=== PATIENT | female | born 1985 | race Caucasian/White ===

== ENCOUNTER 2017-10-10 16:11 | Emergency (ER) | payer OTHER ==
[~2017-10-10] VITALS: Ht 149.9 cm; Wt 54.4 kg
[2017-10-10 16:21] VITALS: BP 120/75
--- NOTE | 2017-10-10 17:14 | NUR ---
Patient ambulated to OF with family. RN evaluating patient.
[2017-10-10] MEDS ORDERED: ACETAMINOPHEN EXTRA STRENGTH 500 MG TAB PO ONE ×2 (17:20→19:00)
--- NOTE | 2017-10-10 17:20 | NUR ---
PRESENT TO ER C/O ABD CRAMPING AND BURNING URINATION x TODAY 1200. PT STATES SHE ALSO HAS DIARRHEA. PT IS 3 MONTHS . LMP 07/12/2017.HX: NONE. MEDS: VITAMINS. SKIN IS PINK/WARM/DRY; AAOX4 WITH EVEN AND STEADY GAIT; LUNGS CLEAR BL. PATIENT STATES PAIN OF 9/10 AT THIS TIME;PATIENT POSITIONED FOR COMFORT; HOB ELEVATED; BEDRAILS UP X2; BED DOWN. ER MD MADE AWARE OF PT STATUS.
[2017-10-10] MEDS ORDERED: ONDANSETRON 4 MG/2 ML VIAL IVP ONE (17:25)
[2017-10-10] MEDS ORDERED: NACL 0.9% 1,000 ML IV ONE (17:25)
[2017-10-10 18:35] LABS: BASOPHILS # (AUTO) 0.1 K/uL (0.00-0.22); BASOPHILS % (AUTO) 0.8 % (0.0-2.0); EOSINOPHILS # (AUTO) 0.1 K/uL (0-0.4); EOSINOPHILS % (AUTO) 0.7 % (0.0-4.0); HEMATOCRIT 36.5 % (36-48); HEMOGLOBIN 12.2 g/dL (12.0-16.0); LYMPHOCYTES # (AUTO) 1.6 K/uL (2.5-16.5); LYMPHOCYTES % (AUTO) 15.1 % (20.5-51.1); MEAN CORPUSCULAR HEMOGLOBIN 28 pg (27-31); MEAN CORPUSCULAR HGB CONC 33 g/dL (33-37); MEAN CORPUSCULAR VOLUME 84 fL (80-94); MONOCYTES # (AUTO) 0.7 K/uL (0.8-1.0); MONOCYTES % (AUTO) 6.9 % (1.7-9.3); NEUTROPHILS % (AUTO) 76.5 % (42.2-75.2); PLATELET COUNT (AUTO) 210 K/uL (140-450); RED BLOOD CELL COUNT(AUTO) 4.36 MIL/uL (4.20-5.40); RED CELL DISTRIBUTION WIDTH 13.6 % (11.6-13.7); WHITE BLOOD COUNT (AUTO) 10.5 K/uL (4.8-10.8)
[2017-10-10] MEDS ORDERED: HYDROcodone/APAP 5/325 MG 1 TAB TAB PO ONE (18:40)
[2017-10-10 18:41] LABS: APPEARANCE,URINE SL CLOUDY (CLEAR); BILIRUBIN,URINE NEGATIVE (NEGATIVE); BLOOD, URINE 2+ (NEGATIVE); COLOR,URINE YELLOW (YELLOW); LEUKOCYTE ESTERASE ,URINE 3+ (NEGATIVE); NITRITE, URINE NEGATIVE (NEGATIVE); PH,URINE 5.5 (5.0-9.0); UGLUCOSE NEGATIVE (NEGATIVE)
[2017-10-10 18:51] LABS: ANION GAP 16.6 (8-16); CARBON DIOXIDE 22.7 mmol/L (21-32); CREATININE 0.7 mg/dL (0.6-1.3); POTASSIUM 4.3 mmol/L (3.5-5.1)
[2017-10-10 18:56] LABS: ALBUMIN 3.5 g/dL (3.4-5.0); TOTAL BILIRUBIN 0.2 mg/dL (0.0-1.0)
[2017-10-10 19:00] LABS: RBC,URINE 3-10 (FEW) /HPF (0-5); WBC,URINE 80-100 /HPF (0-5)
[2017-10-10 19:19] VITALS: BP 110/63
== END 2017-10-10 19:20 | disposition home or self-care (01) ==
LOC: MED 16:11
DX: O23.41 Unspecified infection of urinary tract in pregnancy, first trimester (principal); Z3A.12 12 weeks gestation of pregnancy; Z88.0 Allergy status to penicillin
CPT/HCPCS: 36415; 76801; 80053; 81001; 81025; 84702; 85025; 87086; 87186; 96361; 96374; 99285; J2405; J7030; Q0092

== ENCOUNTER 2017-12-31 22:59 | Observation (INO) | payer MEDICAID, OTHER ==
[~2017-12-31] VITALS: Ht 149.9 cm; Wt 59.9 kg
[2017-12-31] MEDS ORDERED: ALUMINUM HYD/MAG/SIMETHICONE 30 ML UDC PO PRN (23:45)
[2017-12-31] MEDS ORDERED: TERBUTALINE 1 MG/ML VIAL SUBQ SCH (23:45)
[2017-12-31] MEDS ORDERED: TERBUTALINE 1 MG/ML VIAL SUBQ ONE (23:56)
[2017-12-31] MEDS ORDERED: ALUMINUM HYD/MAG/SIMETHICONE 30 ML UDC ONE (23:56)
[2018-01-01] MEDS ORDERED: ALUMINUM HYD/MAG/SIMETHICONE 30 ML UDC ONE (05:18)
[2018-01-01] MEDS ORDERED: LACTATED RINGERS 1,000 ML IV SCH (08:40)
[2018-01-01] MEDS ORDERED: FAMOTIDINE 20 MG/2 ML VIAL IV SCH (09:00)
[2018-01-01] MEDS ORDERED: diphenhydrAMINE 50 MG/ML VIAL ONE (09:05)
[2018-01-01] MEDS ORDERED: diphenhydrAMINE 50 MG/ML VIAL IVP SCH (09:10)
[2018-01-01 14:26] LABS: ALBUMIN 2.8 g/dL (3.4-5.0); ANION GAP 12.4 (8-16); CARBON DIOXIDE 23.4 mmol/L (21-32); CREATININE 0.4 mg/dL (0.6-1.3); POTASSIUM 3.8 mmol/L (3.5-5.1); TOTAL BILIRUBIN 0.3 mg/dL (0.0-1.0)
[2018-01-01] MEDS ORDERED: TERBUTALINE 1 MG/ML VIAL SUBQ SCH (17:00)
[2018-01-01] MEDS ORDERED: TERBUTALINE 1 MG/ML VIAL SUBQ ONE (17:03)
[2018-01-01 20:19] VITALS: BP 114/76
[2018-01-02] MEDS ORDERED: LANSOPRAZOLE 30 MG CAPDR PO SCH (06:30)
== END 2018-01-01 20:50 | disposition home or self-care (01) ==
LOC: MED 22:59 → EDSTATUS 23:19 → MLD 23:20
PROVIDERS: ADMIT Obstetrics & Gynecology; ATTEND Obstetrics & Gynecology
DX: O99.612 Diseases of the digestive system complicating pregnancy, second trimester (principal); K52.9 Noninfective gastroenteritis and colitis, unspecified; Z3A.24 24 weeks gestation of pregnancy
CPT/HCPCS: 36415; 76705; 80053; 81000; 82150; 83690; 96361; 96372; 96374; 99285; G0378; J1200; J3105; J3490; J7120; Q0092

== ENCOUNTER 2018-01-19 21:38 | Observation (INO) | payer MEDICAID ==
[~2018-01-19] VITALS: Ht 149.9 cm; Wt 59.9 kg
[2018-01-19] MEDS ORDERED: PREN1SGL25 PO (21:59)
[2018-01-19] MEDS ORDERED: FERR-252 PO (22:00)
[2018-01-19] MEDS ORDERED: TERBUTALINE 1 MG/ML VIAL SUBQ SCH (22:00)
[2018-01-19] MEDS ORDERED: LACTATED RINGERS 1,000 ML IV SCH (22:00)
[2018-01-19] MEDS ORDERED: TERBUTALINE 1 MG/ML VIAL SUBQ ONE ×2 (22:12→23:06)
[2018-01-19 22:16] VITALS: BP 108/54
[2018-01-20] MEDS: LACTATED RINGERS 1,000 ML IV SCH ×3 (02:15→16:53)
[2018-01-20] MEDS ORDERED: ACETAMINOPHEN 325 MG TAB ONE ×3 (04:23→18:08)
[2018-01-20] MEDS: TERBUTALINE 2.5 MG TAB PO SCH ×4 (04:50→18:10)
[2018-01-20] MEDS ORDERED: TERBUTALINE 2.5 MG TAB ONE ×4 (04:50→18:08)
[2018-01-20] MEDS ORDERED: ACETAMINOPHEN EXTRA STRENGTH 500 MG TAB PO PRN (08:00)
[2018-01-20] MEDS ORDERED: ACETAMINOPHEN EXTRA STRENGTH 500 MG TAB ONE (08:09)
--- NOTE | 2018-01-20 08:58 | NUR ---
PATIENT HAS BEEN SCREENED AND CATEGORIZED LOW NUTRITION RISK. PATIENT WILL BE SEEN WITHIN 7 DAYS OF ADMISSION. 01/26/[address]
[2018-01-20] MEDS: ACETAMINOPHEN 325 MG TAB PO PRN ×2 (11:49→18:10)
== END 2018-01-20 18:55 | disposition home or self-care (01) ==
LOC: MLD 21:38
PROVIDERS: ADMIT Obstetrics & Gynecology; ATTEND Obstetrics & Gynecology
DX: O26.892 Other specified pregnancy related conditions, second trimester (principal); R10.2 Pelvic and perineal pain; O62.9 Abnormality of forces of labor, unspecified; Z3A.27 27 weeks gestation of pregnancy
CPT/HCPCS: 76805; 81000; 96360; 96361; 96372; G0378; J3105; J7120; Q0092

== ENCOUNTER 2018-03-21 13:05 | Observation (INO) | payer MEDICAID ==
[~2018-03-21] VITALS: Ht 149.9 cm; Wt 61.7 kg
[~2018-03-21 13:05] MED LIST: FERR-252 PO; PREN1SGL25 PO
[2018-03-21 15:09] VITALS: BP 108/70
[2018-03-21] MEDS ORDERED: TERBUTALINE 1 MG/ML VIAL SUBQ SCH (15:35)
[2018-03-21] MEDS ORDERED: TERBUTALINE 1 MG/ML VIAL SUBQ ONE ×2 (15:38→16:14)
[2018-03-21] MEDS ORDERED: ONDANSETRON 4 MG/2 ML VIAL ONE (17:27)
[2018-03-21] MEDS ORDERED: ONDANSETRON 4 MG/2 ML VIAL IM ONE (17:30)
== END 2018-03-21 18:00 | disposition home or self-care (01) ==
LOC: MLD 13:05
PROVIDERS: ADMIT Obstetrics & Gynecology; ATTEND Obstetrics & Gynecology
DX: O46.93 Antepartum hemorrhage, unspecified, third trimester (principal); O62.9 Abnormality of forces of labor, unspecified; Z3A.36 36 weeks gestation of pregnancy
CPT/HCPCS: 76805; 81000; 96372; G0378; J2405; J3105; Q0092

== ENCOUNTER 2018-03-30 14:12 | Inpatient (IN) | payer MEDICAID ==
[~2018-03-30] VITALS: Ht 149.9 cm; Wt 66.2 kg
[2018-03-30] MEDS ORDERED: BETAMETH ACET/BETAMETH NA PH 30 MG/5 ML VIAL IM PRN (14:50)
[2018-03-30] MEDS ORDERED: TERBUTALINE 1 MG/ML VIAL SUBQ ONE ×2 (15:04→15:59)
[2018-03-30] MEDS ORDERED: BETAMETH ACET/BETAMETH NA PH 30 MG/5 ML VIAL IM ONE (15:04)
[2018-03-30 15:07] VITALS: BP 107/64
[2018-03-30] MEDS: TERBUTALINE 1 MG/ML VIAL SUBQ SCH ×2 (15:09→16:07)
[2018-03-30] MEDS: LACTATED RINGERS 1,000 ML IV SCH ×2 (16:10→22:36)
[2018-03-30] MEDS ORDERED: TERBUTALINE 2.5 MG TAB ONE (17:50)
[2018-03-30] MEDS: TERBUTALINE 2.5 MG TAB PO SCH (18:00)
[2018-03-30] MEDS: CLINDAMYCIN PHOSPHATE 900MG/NS 50 ML IV SCH (18:01)
[2018-03-30 19:38] VITALS: BP 110/61
[2018-03-30] MEDS ORDERED: CLINDAMYCIN PHOSPHATE 900MG/NS 50 ML IV SCH (21:00)
[2018-03-31] MEDS: TERBUTALINE 2.5 MG TAB PO SCH ×2 (00:04→05:57)
[2018-03-31] MEDS ORDERED: TERBUTALINE 2.5 MG TAB ONE ×2 (00:06→05:54)
[2018-03-31] MEDS ORDERED: NALBUPHINE 10 MG/ML AMP ONE ×2 (00:19→08:31)
[2018-03-31] MEDS ORDERED: PROMETHAZINE 25 MG/ML VIAL ONE ×2 (00:20→08:32)
[2018-03-31] MEDS: NALBUPHINE 10 MG/ML AMP IVP PRN ×2 (00:21→08:34)
[2018-03-31] MEDS: PROMETHAZINE 25 MG/ML VIAL IVP PRN ×2 (00:21→08:35)
[2018-03-31] MEDS: CLINDAMYCIN PHOSPHATE 900MG/NS 50 ML IV SCH ×2 (02:05→10:03)
[2018-03-31] MEDS ORDERED: BETAMETH ACET/BETAMETH NA PH 30 MG/5 ML VIAL IM ONE (03:05)
[2018-03-31] MEDS: LACTATED RINGERS 1,000 ML IV SCH ×2 (06:52→12:51)
--- NOTE | 2018-03-31 08:39 | NUR ---
PATIENT HAS BEEN SCREENED AND CATEGORIZED LOW NUTRITION RISK. PATIENT WILL BE SEEN WITHIN 7 DAYS OF ADMISSION. 04/06/[address]
[2018-03-31] MEDS ORDERED: CITRIC ACID/SODIUM CITRATE 30 ML UDC PO SCH (08:50)
[2018-03-31 10:49] LABS: HEMATOCRIT 27.9 % (36-48); HEMOGLOBIN 8.7 g/dL (12.0-16.0); LYMPHOCYTES # (AUTO) 0.6 K/uL (2.5-16.5); LYMPHOCYTES % (AUTO) 10.1 % (20.5-51.1); MEAN CORPUSCULAR HEMOGLOBIN 26 pg (27-31); MEAN CORPUSCULAR HGB CONC 31 g/dL (33-37); MEAN CORPUSCULAR VOLUME 82.4 fL (80-94); MONOCYTES # (AUTO) 0.1 K/uL (0.8-1.0); MONOCYTES % (AUTO) 1.8 % (1.7-9.3); NEUTROPHILS # (AUTO) 5.3 K/uL (1.8-7.7); NEUTROPHILS % (AUTO) 88.1 % (42.2-75.2); PLATELET COUNT (AUTO) 153 K/uL (140-450); RED BLOOD CELL COUNT(AUTO) 3.38 MIL/uL (4.20-5.40); RED CELL DISTRIBUTION WIDTH 20.9 % (11.6-13.7)
[2018-03-31 10:58] LABS: APPEARANCE,URINE CLEAR (CLEAR); BILIRUBIN,URINE NEGATIVE (NEGATIVE); BLOOD, URINE TRACE-I (NEGATIVE); COLOR,URINE YELLOW (YELLOW); LEUKOCYTE ESTERASE ,URINE 1+ (NEGATIVE); NITRITE, URINE NEGATIVE (NEGATIVE); UGLUCOSE NEGATIVE (NEGATIVE)
[2018-03-31 11:12] LABS: RBC,URINE 0-5 (RARE) /HPF (0-5)
[2018-03-31 11:13] LABS: WBC,URINE 0-5 (RARE) /HPF (0-5)
[2018-03-31 11:22] LABS: ALBUMIN 2.6 g/dL (3.4-5.0); ANION GAP 17.7 (8-16); CARBON DIOXIDE 18.1 mmol/L (21-32); CREATININE 0.6 mg/dL (0.6-1.3); POTASSIUM 3.8 mmol/L (3.5-5.1); TOTAL BILIRUBIN 0.3 mg/dL (0.0-1.0)
[2018-03-31] MEDS ORDERED: OXYTOCIN 10 UNITS/ML VIAL ONE ×3 (11:32→13:01)
[2018-03-31] MEDS ORDERED: fentaNYL 0.05 MG/ML VIAL ONE (12:21)
[2018-03-31] MEDS ORDERED: BUPIVACAINE/DEXT 0.75% SPINAL 2 ML AMP INJ ONE (12:22)
[2018-03-31] MEDS ORDERED: MORPHINE PRES FREE 2 MG/2 ML 2 mL UD SYRINGE ONE (12:22)
[2018-03-31] MEDS ORDERED: NALBUPHINE 10 MG/ML AMP IVP PRN (12:40)
[2018-03-31] MEDS ORDERED: NALOXONE 0.4 MG/ML VIAL IVP PRN ×3 (12:40)
[2018-03-31] MEDS ORDERED: diphenhydrAMINE 50 MG/ML VIAL IVP PRN (12:40)
[2018-03-31] MEDS ORDERED: ONDANSETRON 4 MG/2 ML VIAL IVP PRN ×2 (12:40)
[2018-03-31] MEDS ORDERED: KETOROLAC 60 MG/2 ML VIAL IM PRN (12:40)
[2018-03-31] MEDS ORDERED: ONDANSETRON 4 MG/2 ML VIAL ONE (13:00)
[2018-03-31] MEDS: OXYTOCIN 20 UNITS in LACTATED RINGERS 1,000 ML IV SCH (14:52)
[2018-03-31] MEDS ORDERED: METHYLERGONOVINE 0.2 MG/ML AMP IM PRN (14:55)
[2018-03-31] MEDS ORDERED: TRIMETHOBENZAMIDE 200 MG/2 ML SYR IM PRN (14:55)
[2018-03-31] MEDS ORDERED: MEASLES, MUMPS, AND RUBELLA 1 VIAL SQVAC PRN (14:55)
[2018-03-31] MEDS ORDERED: CLINDAMYCIN 900 MG in DEXTROSE 5% 100 ML IV SCH (18:00)
[2018-04-01] MEDS ORDERED: OXYTOCIN 10 UNITS/ML VIAL ONE (00:24)
[2018-04-01] MEDS: OXYTOCIN 20 UNITS in LACTATED RINGERS 1,000 ML IV SCH (00:28)
[2018-04-01 06:19] LABS: BASOPHILS % (AUTO) 0.1 % (0.0-2.0); HEMATOCRIT 25.1 % (36-48); LYMPHOCYTES % (AUTO) 9.4 % (20.5-51.1); MEAN CORPUSCULAR HEMOGLOBIN 26 pg (27-31); MEAN CORPUSCULAR HGB CONC 32 g/dL (33-37); MEAN CORPUSCULAR VOLUME 81.5 fL (80-94); MONOCYTES # (AUTO) 0.8 K/uL (0.8-1.0); MONOCYTES % (AUTO) 7.4 % (1.7-9.3); NEUTROPHILS # (AUTO) 8.8 K/uL (1.8-7.7); NEUTROPHILS % (AUTO) 83.1 % (42.2-75.2); PLATELET COUNT (AUTO) 132 K/uL (140-450); RED BLOOD CELL COUNT(AUTO) 3.07 MIL/uL (4.20-5.40); RED CELL DISTRIBUTION WIDTH 21.1 % (11.6-13.7); WHITE BLOOD COUNT (AUTO) 10.6 K/uL (4.8-10.8)
[2018-04-01] MEDS ORDERED: TEMAZEPAM 15 MG CAP PO PRN (07:00)
[2018-04-01] MEDS: oxyCODONE/APAP 5/325 MG 1 TAB TAB PO PRN ×3 (08:20→23:20)
[2018-04-01] MEDS: IBUPROFEN 800 MG TAB PO PRN (11:48)
[2018-04-01] MEDS: DOCUSATE SOD/SENNA 50/8.6 MG 1 TAB PO SCH (21:08)
[2018-04-02] MEDS: IBUPROFEN 800 MG TAB PO PRN ×3 (00:30→18:57)
[2018-04-02] MEDS: oxyCODONE/APAP 5/325 MG 1 TAB TAB PO PRN (06:22)
[2018-04-02] MEDS: FERROUS SULFATE 325 MG TABEC PO SCH ×2 (12:40→17:56)
[2018-04-02] MEDS: HYDROcodone/APAP 5/325 MG 1 TAB TAB PO PRN (21:02)
[2018-04-02] MEDS: DOCUSATE SOD/SENNA 50/8.6 MG 1 TAB PO SCH (21:02)
[2018-04-03] MEDS: SIMETHICONE 80 MG TAB.CHEW PO PRN ×2 (01:06→08:34)
[2018-04-03] MEDS: oxyCODONE/APAP 5/325 MG 1 TAB TAB PO PRN ×2 (01:06→11:51)
[2018-04-03] MEDS ORDERED: ONDANSETRON 4 MG TAB PO PRN (03:05)
[2018-04-03] MEDS ORDERED: ONDANSETRON 4 MG TAB ONE (03:18)
[2018-04-03] MEDS: IBUPROFEN 800 MG TAB PO PRN (04:12)
[2018-04-03] MEDS: HYDROcodone/APAP 5/325 MG 1 TAB TAB PO PRN (06:15)
[2018-04-03] MEDS: FERROUS SULFATE 325 MG TABEC PO SCH ×2 (08:34→11:51)
--- NOTE | 2018-04-05 07:56 | NUR ---
PER REQUEST OF [facility] FROM [facility] REPORT FAXED TO [facility] [phone] PHONE KEL [phone].
== END 2018-04-03 14:15 | disposition home or self-care (01) | DRG 540 ==
LOC: MLD 14:12 → UNDOADMOB 14:12 → MLD 03-31 08:48 → INTOOBSV 03-31 08:53 → OBSVTOIN 03-31 08:53 → MFCC 03-31 13:46
PROVIDERS: ADMIT Obstetrics & Gynecology; ATTEND Obstetrics & Gynecology
PROC: 10D00Z1 Extraction of Products of Conception, Low, Open Approach (ICD-10-PCS; principal; 2018-03-31 11:30)
PROC: 3E0234Z Introduction of Serum, Toxoid and Vaccine into Muscle, Percutaneous Approach (ICD-10-PCS; 2018-04-02)
DX: O34.211 Maternal care for low transverse scar from previous cesarean delivery (principal); Z23 Encounter for immunization; Z37.0 Single live birth; Z3A.37 37 weeks gestation of pregnancy
CPT/HCPCS: 36415; 51702; 76815; 80053; 81000; 81001; 85025; 86592; 86886; 86900; 86901; 87086; 87653-90; 90715; G0378; J0702; J1885; J2270; J2300; J2405; J2550; J2590; J3010; J3105; J3490; J7060; J7120; Q0092; Q0162

== ENCOUNTER 2018-04-12 21:08 | Emergency (ER) | payer MEDICAID ==
[~2018-04-12] VITALS: Ht 149.9 cm; Wt 58.6 kg
[2018-04-12 21:23] VITALS: BP 115/76
--- NOTE | 2018-04-12 21:27 | NUR ---
TO LOBBY A/W BED, AMBULATORY, VSS, SHANNAN NOTED
--- NOTE | 2018-04-12 22:56 | NUR ---
PT AMBULATED TO ER BED 05
--- NOTE | 2018-04-12 22:58 | NUR ---
PATIENT PRESENTS TO ED WITH LOWER ABDOMINAL JR S/P MART FROM March. PATIENT STATES SHE WAS SUPPOSED TO GO TO HER OB FOLLOW UP YESTERDAY 04/11 BUT WAS UNABLE TO DO SO. PATIENT STATES SHE HAS A NEW FOLLOW UP APPOINTMENT TOMORROW, BUT WAS ADVISED TO COME IN TO THE ER TO GET HER JR REMOVED DUE TO "BURNING" SENSATION. CESARIAN WOUND IS CLEAN AND DRY, SKIN INTACT AT THIS TIME WITH MINIMAL ERYTHEMA NOTED AROUND STAPLE SITE. PATIENT DENIES ANY FEVERS, N/V AT THIS TIME. ER MD MADE AWARE OF PATIENT STATUS. WILL CONTINUE TO MONITOR.
[2018-04-13] VITALS: BP 120/80
--- NOTE | 2018-04-13 00:01 | NUR ---
Patient discharged with v/s stable. Written and verbal after care instructions given and explained. Patient verbalized understanding. Ambulatory with steady gait. All questions addressed prior to discharge. Advised to follow up with PMD.
== END 2018-04-13 00:01 | disposition home or self-care (01) ==
LOC: MED 21:08
DX: Z48.02 Encounter for removal of sutures (principal); Z88.0 Allergy status to penicillin
CPT/HCPCS: 99283

== ENCOUNTER 2021-05-10 09:27 | Emergency (ER) | payer MEDICAID, OTHER ==
[~2021-05-10] VITALS: Ht 149.9 cm; Wt 57.2 kg
[2021-05-10 09:30] VITALS: BP 119/73
--- NOTE | 2021-05-10 09:38 | NUR ---
PT AMBULATED TO BED
--- NOTE | 2021-05-10 09:51 | NUR ---
35 YO F C/O WORSENING RIGHT-SIDED ABDOMINAL PAIN X 1 MONTH. 8, SHARP. ALSO REPORTS HEADACHE, NAUSEA, DYSURIA AND DIARRHEA X 1 DAY. DENIES FEVER, DENIES VOMITING. PT TAKES NORCO AND IBUPROFEN WHICH PROVIDES MINIMAL RELIEF. LAST TAKEN YESTERDAY 4PM. PT STATES SHE WAS SEEN AT [facility] 5 DAYS AGO AND WAS TOLD "SHE HAD A CYST ON HER R OVERY THAT SEEMS TO HAVE BURST AND THERE IS FLUID NOW." PT HAS APT WITH HER OBGYN NEXT THURSDAY LMP: APR 21, 2021 PMH: APPENDECTOMY MEDS: NONE ALLERGY: PENICILLIN
--- NOTE | 2021-05-10 10:16 | NUR ---
DR. AUSTIN BEDSIDE EVALUATING PT
[2021-05-10] MEDS: KETOROLAC 60 MG/2 ML VIAL IM ONE (10:26)
[2021-05-10] MEDS: ONDANSETRON 4 MG ODT PO ONE (10:26)
[2021-05-10] MEDS ORDERED: ONDA8TAB87 PO (10:27)
[2021-05-10 10:36] VITALS: BP 119/73
== END 2021-05-10 10:36 | disposition home or self-care (01) ==
LOC: MED 09:27
DX: R10.30 Lower abdominal pain, unspecified (principal); R11.0 Nausea; Z88.0 Allergy status to penicillin
CPT/HCPCS: 81002; 81025; 96372; 99283; J1885; Q0162

== ENCOUNTER 2021-06-24 18:29 | Emergency (ER) | payer OTHER ==
[~2021-06-24] VITALS: Ht 154.9 cm; Wt 61.2 kg
[~2021-06-24 18:29] MED LIST changes: +ONDA8TAB87 PO
--- NOTE | 2021-06-24 19:15 | NUR ---
TO BED AMBULATORY
[2021-06-24 19:17] VITALS: BP 111/68
--- NOTE | 2021-06-24 19:30 | NUR ---
SEEN AND EXAMINED BY SHANNAN
--- NOTE | 2021-06-24 19:35 | NUR ---
35 YO F BIB SELF FOR C/O SOB/COUGH/DIARRHEA X2 DAYS. PT STATES SHE HAD NEGATIVE COVID TEST LAST WEEK. DENIES BEING EXPOSED TO COVID. PT ON ROOM AIR 98-100%. LUNGS CLEAR TO AUSCULTATION. ABD SOFT NON DISTENDED. PER PT LOOSE STOOLS X2 DAYS. DENIES FEVER CHILLS. TOLERATING PO INTACT + APPETITE. ERMD MADE AWARE. HX: DENIES NKA LMP: 06/17/21
[2021-06-24] MEDS ORDERED: BENZ-196 PO (19:53)
[2021-06-24] MEDS ORDERED: GUAI-791 PO (19:55)
--- NOTE | 2021-06-24 21:11 | NUR ---
Patient discharged with v/s stable. Written and verbal after care instructions given and explained. Patient alert, oriented and verbalized understanding of instructions. Ambulatory with steady gait. All questions addressed prior to discharge. ID band removed. Patient advised to follow up with PMD. Rx of TESSALON, MUCINEX given. Patient educated on indication of medication including possible reaction and side effects. Opportunity to ask questions provided and answered.
[2021-06-24 21:12] VITALS: BP 110/65
== END 2021-06-24 21:11 | disposition home or self-care (01) ==
LOC: MED 18:29
DX: J06.9 Acute upper respiratory infection, unspecified (principal); G43.909 Migraine, unspecified, not intractable, without status migrainosus; Z88.0 Allergy status to penicillin; Z79.899 Other long term (current) drug therapy
CPT/HCPCS: 99283

== ENCOUNTER 2021-07-24 11:33 | Emergency (ER) | payer OTHER ==
[~2021-07-24] VITALS: Ht 124.5 cm; Wt 58.5 kg
[~2021-07-24 11:33] MED LIST changes: +BENZ-196 PO; +GUAI-791 PO
[2021-07-24 11:43] VITALS: BP 106/79
[2021-07-24] MEDS ORDERED: KETOROLAC 60 MG/2 ML VIAL IM ONE (11:50)
--- NOTE | 2021-07-24 12:10 | NUR ---
35/F BIB SELF WITH C/O SHARP NONRADIATING INTERMITTENT CHEST PAIN SINCE YESTERDAY. STATES SHE WAS AT WORK "OPENING BOXES" WHEN THE PAIN STARTED, STATING PAIN WORSENS WHEN LYING ON HER SIDE. DENIES SOB, FEVER, N/V/D. PT STATED SHE ALSO HAS PAIN THAT IS RADIATING TO HER R ARM. PT STATED PAIN IS PRESSURE LIKE PAIN AT THE TIME. BREATH SOUNDS CLEAR AND EQUAL CHEST RISE AND FALL NOTED MEDHX: DENIES ALLERGIES: PENICILLINS, PAPER TAPE
[2021-07-24 13:37] VITALS: BP 100/56
== END 2021-07-24 13:37 | disposition home or self-care (01) ==
LOC: MED 11:33
DX: R07.89 Other chest pain (principal); Z88.0 Allergy status to penicillin; Z90.49 Acquired absence of other specified parts of digestive tract; Z98.890 Other specified postprocedural states
CPT/HCPCS: 93005; 96372; 99283; J1885

== ENCOUNTER 2022-03-23 13:19 | Emergency (ER) | payer OTHER ==
[~2022-03-23] VITALS: Ht 149.9 cm; Wt 61.2 kg
[2022-03-23 13:48] VITALS: BP 113/70
[2022-03-23 14:45] LABS: APPEARANCE,URINE CLEAR (CLEAR); BILIRUBIN,URINE NEGATIVE (NEGATIVE); BLOOD, URINE NEGATIVE (NEGATIVE); COLOR,URINE YELLOW (YELLOW); LEUKOCYTE ESTERASE ,URINE NEGATIVE (NEGATIVE); NITRITE, URINE NEGATIVE (NEGATIVE); PH,URINE 6.5 (5.0-9.0); UGLUCOSE NEGATIVE (NEGATIVE)
[2022-03-23 15:06] LABS: BASOPHILS % (AUTO) 0.5 % (0.0-2.0); EOSINOPHILS # (AUTO) 0.1 K/uL (0-0.4); EOSINOPHILS % (AUTO) 0.9 % (0.0-4.0); HEMOGLOBIN 11.1 g/dL (12.0-16.0); LYMPHOCYTES # (AUTO) 1.3 K/uL (2.5-16.5); LYMPHOCYTES % (AUTO) 20.9 % (20.5-51.1); MEAN CORPUSCULAR HEMOGLOBIN 25 pg (27-31); MEAN CORPUSCULAR HGB CONC 32 g/dL (33-37); MONOCYTES # (AUTO) 0.6 K/uL (0.8-1.0); MONOCYTES % (AUTO) 9.1 % (1.7-9.3); NEUTROPHILS # (AUTO) 4.2 K/uL (1.8-7.7); NEUTROPHILS % (AUTO) 68.6 % (42.2-75.2); PLATELET COUNT (AUTO) 214 K/uL (140-450); RED BLOOD CELL COUNT(AUTO) 4.48 MIL/uL (4.20-5.40); RED CELL DISTRIBUTION WIDTH 18.4 % (11.6-13.7); WHITE BLOOD COUNT (AUTO) 6.2 K/uL (4.8-10.8)
[2022-03-23 15:25] LABS: ANION GAP 12.2 (8-16); CARBON DIOXIDE 24.7 mmol/L (21-32); CREATININE 0.6 mg/dL (0.6-1.3); POTASSIUM 3.9 mmol/L (3.5-5.1); TOTAL BILIRUBIN 0.3 mg/dL (0.0-1.0)
[2022-03-23] MEDS ORDERED: KETOROLAC 30 MG/ML VIAL IVP ONE (16:30)
[2022-03-23 17:05] VITALS: BP 115/64
== END 2022-03-23 17:05 | disposition home or self-care (01) ==
LOC: MED 13:19
DX: B34.9 Viral infection, unspecified (principal); Z20.822 Contact with and (suspected) exposure to COVID-19; R07.9 Chest pain, unspecified
CPT/HCPCS: 36415; 71045; 80053; 81003; 83690; 85025; 87426; 87804; 96374; 99284; J1885

== ENCOUNTER 2022-06-17 09:44 | Emergency (ER) | payer OTHER ==
[~2022-06-17] VITALS: Ht 149.9 cm; Wt 62.1 kg
[2022-06-17 10:06] VITALS: BP 96/60
--- NOTE | 2022-06-17 10:10 | NUR ---
ryan and flu swabbed, given to [facility]
--- NOTE | 2022-06-17 10:45 | NUR ---
labs drawn at this time in [facility], pt asked to return to [facility]
[2022-06-17 10:57] LABS: BASOPHILS % (AUTO) 0.4 % (0.0-2.0); EOSINOPHILS % (AUTO) 0.5 % (0.0-4.0); HEMOGLOBIN 10.6 g/dL (12.0-16.0); LYMPHOCYTES # (AUTO) 0.7 K/uL (2.5-16.5); MEAN CORPUSCULAR HEMOGLOBIN 25 pg (27-31); MEAN CORPUSCULAR HGB CONC 32 g/dL (33-37); MEAN CORPUSCULAR VOLUME 76.8 fL (80-94); MONOCYTES # (AUTO) 0.6 K/uL (0.8-1.0); MONOCYTES % (AUTO) 9.9 % (1.7-9.3); NEUTROPHILS # (AUTO) 4.6 K/uL (1.8-7.7); NEUTROPHILS % (AUTO) 77.2 % (42.2-75.2); PLATELET COUNT (AUTO) 207 K/uL (140-450); RED CELL DISTRIBUTION WIDTH 17.9 % (11.6-13.7); WHITE BLOOD COUNT (AUTO) 5.9 K/uL (4.8-10.8)
[2022-06-17 11:13] LABS: ALBUMIN 3.7 g/dL (3.4-5.0); ANION GAP 17.4 (8-16); CARBON DIOXIDE 21.8 mmol/L (21-32); CREATININE 0.7 mg/dL (0.6-1.3); POTASSIUM 4.2 mmol/L (3.5-5.1); TOTAL BILIRUBIN 0.3 mg/dL (0.0-1.0)
[2022-06-17] MEDS ORDERED: IBUP-2213 PO ×2 (11:52→12:06)
[2022-06-17] MEDS ORDERED: PROM473S5 PO ×2 (11:52→12:06)
[2022-06-17] MEDS ORDERED: NIRM1TAB PO ×2 (11:52→12:06)
[2022-06-17] MEDS ORDERED: NITR100C7 PO ×2 (11:52→12:06)
[2022-06-17 12:08] VITALS: BP 96/60
--- NOTE | 2022-06-17 12:08 | NUR ---
Patient discharged with v/s stable. Written and verbal after care instructions ABOUT COVID 19, ANEMIA AND VIRAL ILLNESS given and explained. Patient alert, oriented and verbalized understanding of instructions. Ambulatory with steady gait. All questions addressed prior to discharge. ID band removed. Patient advised to follow up with PMD. Rx of PAXLOVID, MACROBID, PROMETHAZINE AND IBUPROFEN given. Patient educated on indication of medication including possible reaction and side effects. Opportunity to ask questions provided and answered.
== END 2022-06-17 12:08 | disposition home or self-care (01) ==
LOC: MED 09:44
DX: U07.1 COVID-19 (principal); B34.9 Viral infection, unspecified; N39.0 Urinary tract infection, site not specified; D64.9 Anemia, unspecified; Z88.0 Allergy status to penicillin
CPT/HCPCS: 36415; 80053; 81002; 81025; 85025; 99283

== ENCOUNTER 2022-06-20 13:22 | Emergency (ER) | payer OTHER ==
[~2022-06-20] VITALS: Ht 149.9 cm; Wt 61.7 kg
[~2022-06-20 13:22] MED LIST changes: -BENZ-196 PO; -FERR-252 PO; -GUAI-791 PO; +IBUP-2213 PO; +NIRM1TAB PO; +NITR100C7 PO; -ONDA8TAB87 PO; -PREN1SGL25 PO; +PROM473S5 PO
[2022-06-20 13:35] VITALS: BP 104/69
--- NOTE | 2022-06-20 13:38 | NUR ---
PT AMBULATED TO ER BED 1
[2022-06-20] MEDS ORDERED: NIRM1TAB PO (15:05)
[2022-06-20] MEDS ORDERED: ROBAC PO (15:06)
[2022-06-20 15:29] VITALS: BP 103/58
--- NOTE | 2022-06-20 15:36 | NUR ---
Patient discharged with v/s stable. Written and verbal after care instructions given and explained. Patient alert, oriented and verbalized understanding of instructions. Ambulatory with steady gait. All questions addressed prior to discharge. ID band removed. Patient advised to follow up with PMD. Rx of PAXLOVID AND CODEINE,GUAFENIESN given. Patient educated on indication of medication including possible reaction and side effects. Opportunity to ask questions provided and answered.
== END 2022-06-20 15:29 | disposition home or self-care (01) ==
LOC: MED 13:22
DX: U07.1 COVID-19 (principal); B34.9 Viral infection, unspecified; Z79.899 Other long term (current) drug therapy; Z88.0 Allergy status to penicillin
CPT/HCPCS: 71045; 99283

== ENCOUNTER 2022-08-11 12:59 | Emergency (ER) | payer OTHER ==
[~2022-08-11] VITALS: Ht 154.9 cm; Wt 59.0 kg
[~2022-08-11 12:59] MED LIST changes: +ROBAC PO
[2022-08-11 13:17] VITALS: BP 107/58
--- NOTE | 2022-08-11 13:23 | NUR ---
SWABBED AND WALKED TO LAB
== END 2022-08-11 14:49 | disposition home or self-care (01) ==
LOC: MED 12:59
DX: J06.9 Acute upper respiratory infection, unspecified (principal); Z20.822 Contact with and (suspected) exposure to COVID-19; B34.9 Viral infection, unspecified; Z88.0 Allergy status to penicillin; Z79.899 Other long term (current) drug therapy
CPT/HCPCS: 87081; 99283

== ENCOUNTER 2022-10-14 21:08 | Emergency (ER) | payer OTHER ==
[~2022-10-14] VITALS: Ht 149.9 cm; Wt 54.4 kg
[2022-10-14 21:50] VITALS: BP 118/78
--- NOTE | 2022-10-14 21:56 | NUR ---
TO LOBBY A/W BED AMBULATORY
--- NOTE | 2022-10-14 22:18 | NUR ---
PT TO 12
--- NOTE | 2022-10-14 22:18 | NUR ---
urine sample colllected and sent to lab.
--- NOTE | 2022-10-14 22:20 | NUR ---
Patient BIB by family from home. C/O RLQ abdominal pain x 4 days, Patient reported, had RLQ abdominal pain, and right flank pain for 4 days, no N/V/D.
[2022-10-14 22:29] LABS: APPEARANCE,URINE HAZY (CLEAR); BLOOD, URINE NEGATIVE (NEGATIVE); COLOR,URINE YELLOW (YELLOW); UGLUCOSE NEGATIVE (NEGATIVE)
[2022-10-14 22:30] LABS: BILIRUBIN,URINE NEGATIVE (NEGATIVE); LEUKOCYTE ESTERASE ,URINE SMALL (NEGATIVE); NITRITE, URINE NEGATIVE (NEGATIVE)
[2022-10-14 22:32] LABS: RBC,URINE 0-5 /HPF (0-5)
[2022-10-14 22:43] LABS: BASOPHILS % (AUTO) 0.5 % (0.0-2.0); EOSINOPHILS # (AUTO) 0.1 K/uL (0-0.4); EOSINOPHILS % (AUTO) 1.6 % (0.0-4.0); HEMATOCRIT 31.1 % (36-48); HEMOGLOBIN 9.8 g/dL (12.0-16.0); LYMPHOCYTES # (AUTO) 2.8 K/uL (2.5-16.5); LYMPHOCYTES % (AUTO) 48.3 % (20.5-51.1); MEAN CORPUSCULAR HEMOGLOBIN 24 pg (27-31); MEAN CORPUSCULAR HGB CONC 31 g/dL (33-37); MEAN CORPUSCULAR VOLUME 76.6 fL (80-94); MONOCYTES # (AUTO) 0.5 K/uL (0.8-1.0); MONOCYTES % (AUTO) 8.1 % (1.7-9.3); NEUTROPHILS # (AUTO) 2.4 K/uL (1.8-7.7); NEUTROPHILS % (AUTO) 41.5 % (42.2-75.2); PLATELET COUNT (AUTO) 198 K/uL (140-450); RED BLOOD CELL COUNT(AUTO) 4.05 MIL/uL (4.20-5.40); RED CELL DISTRIBUTION WIDTH 17.8 % (11.6-13.7); WHITE BLOOD COUNT (AUTO) 5.8 K/uL (4.8-10.8)
[2022-10-14] MEDS ORDERED: cefTRIAXone 1,000 MG in LIDOCAINE MPF 1% 2.1 ML IM ONE (22:50)
[2022-10-14 22:56] LABS: ALBUMIN 4.1 g/dL (3.4-5.0); ANION GAP 13.9 (8-16); CARBON DIOXIDE 26.7 mmol/L (21-32); CREATININE 0.7 mg/dL (0.6-1.3); POTASSIUM 4.6 mmol/L (3.5-5.1); TOTAL BILIRUBIN 0.2 mg/dL (0.0-1.0)
[2022-10-14] MEDS ORDERED: LIDOCAINE MPF 1% 5 ML ONE (23:01)
[2022-10-14] MEDS ORDERED: cefTRIAXone 1,000 MG VIAL ONE (23:01)
[2022-10-14] MEDS ORDERED: CEFD300C3 PO (23:08)
[2022-10-14] MEDS ORDERED: NAPR-54 PO (23:08)
[2022-10-14 23:15] VITALS: BP 116/78
--- NOTE | 2022-10-14 23:15 | NUR ---
Patient discharged with v/s stable. Written and verbal after care instructions given and explained. Patient alert, oriented and verbalized understanding of instructions. Ambulatory with steady gait. All questions addressed prior to discharge. ID band removed. Patient advised to follow up with PMD. Rx of Naproxen and Cefdinir given. Patient educated on indication of medication including possible reaction and side effects. Opportunity to ask questions provided and answered.
== END 2022-10-14 23:15 | disposition home or self-care (01) ==
LOC: MED 21:08
DX: N39.0 Urinary tract infection, site not specified (principal); Z88.0 Allergy status to penicillin
CPT/HCPCS: 36415; 80053; 81001; 81025; 82150; 83690; 84703; 85025; 87086; 96372; 99283; J0696; J2001

== ENCOUNTER 2023-01-05 09:28 | Emergency (ER) | payer OTHER ==
[~2023-01-05] VITALS: Ht 149.9 cm; Wt 56.7 kg
[~2023-01-05 09:28] MED LIST changes: +CEFD300C3 PO; +NAPR-54 PO
[2023-01-05 09:36] VITALS: BP 100/69
--- NOTE | 2023-01-05 09:39 | NUR ---
LEFT SIDED LOW BACK (04/23) PAIN, ONSET AT 0200 THIS MORNING. DENIES INJURY, DENIES PAINFUL URINATION, DENIES HEMATURIA, DENIES FEVERS. PMH: DENIES
[2023-01-05] MEDS ORDERED: ONDANSETRON 4 MG/2 ML VIAL IVP ONE (10:25)
[2023-01-05] MEDS ORDERED: MORPHINE SULFATE 4 MG/ML SYR IVP ONE (10:25)
[2023-01-05 10:47] LABS: APPEARANCE,URINE CLEAR (CLEAR); BILIRUBIN,URINE NEGATIVE (NEGATIVE); BLOOD, URINE NEGATIVE (NEGATIVE); COLOR,URINE YELLOW (YELLOW); LEUKOCYTE ESTERASE ,URINE NEGATIVE (NEGATIVE); NITRITE, URINE NEGATIVE (NEGATIVE); UGLUCOSE NEGATIVE (NEGATIVE)
[2023-01-05 10:48] LABS: BASOPHILS % (AUTO) 0.5 % (0.0-2.0); EOSINOPHILS % (AUTO) 0.8 % (0.0-4.0); HEMATOCRIT 32.5 % (36-48); HEMOGLOBIN 10.3 g/dL (12.0-16.0); LYMPHOCYTES # (AUTO) 1.8 K/uL (2.5-16.5); LYMPHOCYTES % (AUTO) 33.7 % (20.5-51.1); MEAN CORPUSCULAR HEMOGLOBIN 24 pg (27-31); MEAN CORPUSCULAR HGB CONC 32 g/dL (33-37); MEAN CORPUSCULAR VOLUME 75.9 fL (80-94); MONOCYTES # (AUTO) 0.5 K/uL (0.8-1.0); MONOCYTES % (AUTO) 8.8 % (1.7-9.3); NEUTROPHILS % (AUTO) 56.2 % (42.2-75.2); PLATELET COUNT (AUTO) 203 K/uL (140-450); RED BLOOD CELL COUNT(AUTO) 4.29 MIL/uL (4.20-5.40); WHITE BLOOD COUNT (AUTO) 5.4 K/uL (4.8-10.8)
[2023-01-05] MEDS ORDERED: LIDOCAINE 5% 1 EA PATCH TP ONE (11:35)
[2023-01-05] MEDS ORDERED: KETOROLAC 15 MG/ML VIAL IVP ONE (11:35)
[2023-01-05 11:37] LABS: ANION GAP 12.9 (8-16); CARBON DIOXIDE 25.2 mmol/L (21-32); CREATININE 0.6 mg/dL (0.6-1.3); POTASSIUM 5.1 mmol/L (3.5-5.1); TOTAL BILIRUBIN 0.4 mg/dL (0.0-1.0)
[2023-01-05] MEDS ORDERED: LIDO4CRE18 TP (13:28)
[2023-01-05] MEDS ORDERED: MIRABULK PO (13:28)
[2023-01-05] MEDS ORDERED: IBUP-2213 PO (13:28)
[2023-01-05 13:56] VITALS: BP 100/62
== END 2023-01-05 13:56 | disposition home or self-care (01) ==
LOC: MED 09:28
DX: K59.00 Constipation, unspecified (principal); R10.9 Unspecified abdominal pain; Z88.0 Allergy status to penicillin; Z79.899 Other long term (current) drug therapy; Z90.49 Acquired absence of other specified parts of digestive tract
CPT/HCPCS: 36415; 74176; 80053; 81003; 81025; 83690; 85025; 96374; 96375; 99285; J1885; J2270; J2405

== ENCOUNTER 2023-01-17 17:25 | Emergency (ER) | payer OTHER ==
[~2023-01-17] VITALS: Ht 149.9 cm; Wt 60.3 kg
[~2023-01-17 17:25] MED LIST changes: +LIDO4CRE18 TP; +MIRABULK PO
[2023-01-17 17:43] VITALS: BP 125/77
--- NOTE | 2023-01-17 17:50 | NUR ---
URINE CUP PROVIDED. COMFORT MEASURES AND SUPPORTIVE CARE INITIATED. PREP FOR ERMD.
--- NOTE | 2023-01-17 17:55 | NUR ---
The patient's care was reviewed and supervised by ELISABETH MAYA RN.
--- NOTE | 2023-01-17 17:58 | NUR ---
xray at bedside
--- NOTE | 2023-01-17 18:00 | NUR ---
37YO FEMALE PT C/O COUGH, CONGESTION AND DECREASE IN APPETITE XYESTERDAY. SHARP PAIN ON COUGH. PAIN ON SWALLOWING. DENIES N/V/D, FEVER, CHILLS ,SOB OR ANYONE SICK AT HOME. PENELOPE CLEAR LUNG SOUNDS. RESPIRATIONS EVEN AND UNLABORED. PT AAOX4, HOB POSTIONED PER COMFORT. DAUGHTER AT BEDSIDE HX:DENIES ALLERGIES: PENICILLIN
--- NOTE | 2023-01-17 18:08 | NUR ---
pt swabbed for covid(ryan). walked and handed to lab
[2023-01-17] MEDS ORDERED: ALBU0.0912 IH (18:27)
[2023-01-17] MEDS ORDERED: BPM/480S48 PO (18:27)
--- NOTE | 2023-01-17 18:35 | NUR ---
Patient discharged with v/s stable. Written and verbal after care instructions FOR CHEST WALL PAIN AND VIRAL ILLNESS given and explained. Patient alert, oriented and verbalized understanding of instructions. Ambulatory with steady gait. All questions addressed prior to discharge. ID band removed. Patient advised to follow up with PMD. Rx of ALBUTEROL SULFATE AND BROMPHENIRAM / PHENYLEPHRINE /DM given. Opportunity to ask questions provided and answered.
--- NOTE | 2023-01-17 18:47 | NUR ---
The patient's care was reviewed and supervised by [facility], RN.
== END 2023-01-17 18:35 | disposition home or self-care (01) ==
LOC: MED 17:25
DX: J06.9 Acute upper respiratory infection, unspecified (principal); Z20.822 Contact with and (suspected) exposure to COVID-19; Z79.899 Other long term (current) drug therapy
CPT/HCPCS: 71045; 87426; 99284; Q0092

== ENCOUNTER 2023-05-04 06:45 | Emergency (ER) | payer OTHER ==
[~2023-05-04] VITALS: Ht 149.9 cm; Wt 57.6 kg
[~2023-05-04 06:45] MED LIST changes: +ALBU0.0912 IH; +BPM/480S48 PO
[2023-05-04 07:08] VITALS: BP 106/65; PULSE 80; RESP 18; TEMP 97.6; O2SAT 99
[2023-05-04] MEDS ORDERED: MAGNESIUM HYDROXIDE 2400 MG/30 ML UDC PO ONE (07:25)
[2023-05-04 07:28] VITALS: O2SAT 99
[2023-05-04] MEDS ORDERED: LACTULOSE 20 GM/30 ML UDC PO ONE (07:30)
[2023-05-04] MEDS ORDERED: LACTULOSE 20 GM/30 ML UDC ONE (09:11)
[2023-05-04] MEDS ORDERED: MAGNESIUM HYDROXIDE 2400 MG/30 ML UDC ONE (09:11)
== END 2023-05-04 09:15 | disposition left against medical advice (07) ==
LOC: MED 06:45
DX: K59.00 Constipation, unspecified (principal); M79.604 Pain in right leg; M79.605 Pain in left leg; Z88.0 Allergy status to penicillin; Z79.899 Other long term (current) drug therapy; Z53.21 Procedure and treatment not carried out due to patient leaving prior to being seen by health care provider
CPT/HCPCS: 99281

== ENCOUNTER 2023-07-12 16:01 | Emergency (ER) | payer OTHER ==
[~2023-07-12] VITALS: Ht 149.9 cm; Wt 56.2 kg
[2023-07-12 16:24] VITALS: BP 128/68; PULSE 81; RESP 14; TEMP 97.5; O2SAT 99
[2023-07-12] MEDS ORDERED: ACETAMINOPHEN EXTRA STRENGTH 500 MG TAB PO ONE (16:50)
[2023-07-12 17:07] LABS: APPEARANCE,URINE CLEAR (CLEAR); BILIRUBIN,URINE NEGATIVE (NEGATIVE); BLOOD, URINE 3+ (NEGATIVE); COLOR,URINE YELLOW (YELLOW); LEUKOCYTE ESTERASE ,URINE NEGATIVE (NEGATIVE); NITRITE, URINE NEGATIVE (NEGATIVE); PH,URINE 5.5 (5.0-9.0); PROTEIN,URINE TRACE (NEGATIVE); UGLUCOSE NEGATIVE (NEGATIVE); UROBILINOGEN,URINE 0.2 EU/dL (0.2 - 1)
[2023-07-12 17:37] LABS: BACTERIA,URINE 2+ /HPF (None Seen); RBC,URINE 0-5 /HPF (0-5); WBC,URINE NONE SEEN /HPF (0-5)
[2023-07-12] MEDS ORDERED: IBUP-2213 PO (18:20)
[2023-07-12] MEDS ORDERED: NITR100C7 PO (18:20)
[2023-07-12 18:42] LABS: FLU A ANTIGEN negative (NEGATIVE); FLU B ANTIGEN NEGATIVE (NEGATIVE)
== END 2023-07-12 18:32 | disposition home or self-care (01) ==
LOC: MED 16:01
DX: J02.9 Acute pharyngitis, unspecified (principal); Z20.822 Contact with and (suspected) exposure to COVID-19; N39.0 Urinary tract infection, site not specified; Z88.0 Allergy status to penicillin; Z79.899 Other long term (current) drug therapy
CPT/HCPCS: 81001; 81025; 87081; 87086; 99283

== ENCOUNTER 2024-01-28 18:51 | Emergency (ER) | payer OTHER ==
[~2024-01-28] VITALS: Ht 149.9 cm; Wt 56.4 kg
[~2024-01-28 18:51] MED LIST changes: +NAPR-337 PO; -NAPR-54 PO
[2024-01-28 18:58] VITALS: BP 110/86; PULSE 80; RESP 18; TEMP 97.6; O2SAT 98
[2024-01-28 20:26] LABS: APPEARANCE,URINE CLEAR (CLEAR); BILIRUBIN,URINE NEGATIVE (NEGATIVE); BLOOD, URINE NEGATIVE (NEGATIVE); COLOR,URINE YELLOW (YELLOW); LEUKOCYTE ESTERASE ,URINE NEGATIVE (NEGATIVE); NITRITE, URINE NEGATIVE (NEGATIVE); PH,URINE 6.5 (5.0-9.0); PROTEIN,URINE NEGATIVE (NEGATIVE); UGLUCOSE NEGATIVE (NEGATIVE); UROBILINOGEN,URINE 0.2 EU/dL (0.2 - 1)
[2024-01-28] MEDS: KETOROLAC 30 MG/ML VIAL IM ONE (20:27)
[2024-01-28 20:30] LABS: BASOPHILS # (AUTO) 0.1 K/uL (0.00-0.22); BASOPHILS % (AUTO) 1.9 % (0.0-2.0); EOSINOPHILS % (AUTO) 0.6 % (0.0-4.0); HEMOGLOBIN 8.4 g/dL (12.0-16.0); LYMPHOCYTES # (AUTO) 1.9 K/uL (2.5-16.5); LYMPHOCYTES % (AUTO) 37.5 % (20.5-51.1); MEAN CORPUSCULAR HEMOGLOBIN 23 pg (27-31); MEAN CORPUSCULAR HGB CONC 31 g/dL (33-37); MEAN CORPUSCULAR VOLUME 72.2 fL (80-94); MONOCYTES # (AUTO) 0.4 K/uL (0.8-1.0); MONOCYTES % (AUTO) 8.3 % (1.7-9.3); NEUTROPHILS # (AUTO) 2.7 K/uL (1.8-7.7); NEUTROPHILS % (AUTO) 51.7 % (42.2-75.2); PLATELET COUNT (AUTO) 208 K/uL (140-450); RED BLOOD CELL COUNT(AUTO) 3.73 MIL/uL (4.20-5.40); RED CELL DISTRIBUTION WIDTH 19.8 % (11.6-13.7); WHITE BLOOD COUNT (AUTO) 5.2 K/uL (4.8-10.8)
[2024-01-28 20:42] LABS: ANION GAP 12.9 (8-16); CALCIUM 8.3 mg/dL (8.5-10.1); CREATININE 1.3 mg/dL (0.6-1.3); POTASSIUM 3.9 mmol/L (3.5-5.1)
[2024-01-28] MEDS: MORPHINE SULFATE 4 MG/ML SYR IVP ONE (22:07)
[2024-01-29] MEDS: HYDROcodone/APAP 5/325 MG 1 TAB TAB PO ONE (03:12)
[2024-01-29 03:31] VITALS: O2SAT 98
[2024-01-29] MEDS ORDERED: HYDR25SU91 RC (05:50)
[2024-01-29] MEDS ORDERED: ACET-10509 PO (05:50)
[2024-01-29] MEDS ORDERED: LEVO-481 PO (05:50)
[2024-01-29 06:00] VITALS: BP 116/54; PULSE 69; RESP 16; TEMP 98.2; O2SAT 99
== END 2024-01-29 06:00 | disposition home or self-care (01) ==
LOC: MED 18:51
DX: K62.89 Other specified diseases of anus and rectum (principal); R19.7 Diarrhea, unspecified; Z88.0 Allergy status to penicillin; Z79.899 Other long term (current) drug therapy
CPT/HCPCS: 36415; 74177; 80048; 81003; 81025; 85025; 87210; 96372; 96374; 99285; J1885; J2270; Q9967

== ENCOUNTER 2024-05-01 19:23 | Emergency (ER) | payer OTHER ==
[~2024-05-01] VITALS: Ht 149.9 cm; Wt 56.7 kg
[~2024-05-01 19:23] MED LIST changes: +ACET500T99 PO; +HYDR25SU91 RC; +LEVO-481 PO
[2024-05-01 19:26] VITALS: BP_SYST 103; BP_SYST 11; BP_DIAS 53; BP_DIAS 63; PULSE 71; RESP 14; TEMP 97.8; O2SAT 99
[2024-05-01 20:03] LABS: FLU A ANTIGEN negative (NEGATIVE); FLU B ANTIGEN negative (NEGATIVE)
[2024-05-01 20:12] LABS: BILIRUBIN,URINE NEGATIVE (NEGATIVE); BLOOD, URINE 3+ (NEGATIVE); COLOR,URINE YELLOW (YELLOW); LEUKOCYTE ESTERASE ,URINE TRACE (NEGATIVE); NITRITE, URINE NEGATIVE (NEGATIVE); PROTEIN,URINE 1+ (NEGATIVE); UGLUCOSE NEGATIVE (NEGATIVE); UROBILINOGEN,URINE 0.2 EU/dL (0.2 - 1)
[2024-05-01 20:15] LABS: APPEARANCE,URINE SLIGHTLY CLOUDY (CLEAR)
[2024-05-01 20:17] LABS: BACTERIA,URINE 1+ /HPF (None Seen); RBC,URINE 20-50 /HPF (0-5); WBC,URINE 0-5 /HPF (0-5)
[2024-05-01 20:18] LABS: MUCUS,URINE None Seen /LPF (None Seen); SQUAMOUS EPITHELIAL CELL,UR 0-3 (FEW) /LPF (0-3 (FEW))
[2024-05-01] MEDS ORDERED: SULF-59 PO (20:19)
[2024-05-01 20:31] VITALS: BP 108/53; PULSE 68; RESP 16; O2SAT 98
== END 2024-05-01 20:30 | disposition home or self-care (01) ==
LOC: MED 19:23
DX: N39.0 Urinary tract infection, site not specified (principal); B34.9 Viral infection, unspecified; Z20.822 Contact with and (suspected) exposure to COVID-19; Z90.49 Acquired absence of other specified parts of digestive tract; Z98.890 Other specified postprocedural states; Z79.1 Long term (current) use of non-steroidal anti-inflammatories (NSAID); Z79.2 Long term (current) use of antibiotics; Z79.899 Other long term (current) drug therapy; Z88.0 Allergy status to penicillin
CPT/HCPCS: 71045; 81001; 81025; 87426; 87804; 99284; Q0092